=== PATIENT | male | born 1985 | race Two or more races ===

== ENCOUNTER 2024-08-15 20:55 | Emergency (ER) | payer OTHER ==
[~2024-08-15] VITALS: Ht 167.6 cm; Wt 104.3 kg
[2024-08-15] MEDS ORDERED: KETOROLAC TROMETHAMINE 60 MG VIAL IM ONE (23:30)
[2024-08-16 00:02] LABS: HEMATOCRIT 40.9 % (39.0-48.0); MEAN CELL VOLUME 83.3 fL (80.0-100.00); MEAN CORPUSCULAR HEMOGLOBIN 28.6 pg (27.00-32.0); MEAN CORPUSCULAR HGB CONC 34.3 g/dl (32.0-36.0); PLATELET COUNT 244 K/uL (150-450); RED BLOOD COUNT 4.91 M/uL (4.00-6.00); RED CELL DISTRIBUTION WIDTH 13.5 % (11.5-14.5)
== END 2024-08-16 00:24 | disposition home or self-care (01) ==
LOC: ER 20:57
PROVIDERS: Preventive Medicine Public Health & General Preventive Medicine
DX: M79.671 Pain in right foot (principal)

== ENCOUNTER 2024-10-03 09:51 | Emergency (ER) | payer OTHER ==
[~2024-10-03] VITALS: Ht 167.6 cm; Wt 104.3 kg
[2024-10-03 13:18] LABS: HEMATOCRIT 41.5 % (39.0-48.0); HEMOGLOBIN 14.5 g/dL (13-16.00); MEAN CELL VOLUME 81.9 fL (80.0-100.00); MEAN CORPUSCULAR HEMOGLOBIN 28.6 pg (27.00-32.0); MEAN CORPUSCULAR HGB CONC 34.9 g/dl (32.0-36.0); PLATELET COUNT 257 K/uL (150-450); RED BLOOD COUNT 5.06 M/uL (4.00-6.00)
[2024-10-03 13:41] LABS: CALCIUM 8.7 mg/dL (8.5-10.1); CREATININE SERUM 0.88 mg/dL (0.70-1.30); GFR 96.92; POTASSIUM 4.02 mEq/L (3.5-5.1)
== END 2024-10-03 15:55 | disposition home or self-care (01) ==
LOC: ER 09:53
DX: B34.9 Viral infection, unspecified (principal); R53.81 Other malaise; Z20.822 Contact with and (suspected) exposure to COVID-19